=== PATIENT | female | born 1970 | race Caucasian/White ===

== ENCOUNTER → 2016-06-02 | Outpatient (CLI) | payer OTHER ==
[~2016-06-02] MED LIST: EPP3/2 IM; PRED20TA PO
== END | disposition home or self-care (01) ==
LOC: C.PAPS 09:16
PROVIDERS: ATTEND Obstetrics & Gynecology
DX: Z01.419 Encounter for gynecological examination (general) (routine) without abnormal findings (principal)

== ENCOUNTER → 2016-07-22 | Outpatient (CLI) | payer OTHER | END | disposition home or self-care (01) | LOC: C.PATH 17:48 | PROVIDERS: ATTEND Obstetrics & Gynecology | DX: N95.0 Postmenopausal bleeding (principal) ==

== ENCOUNTER 2016-08-24 10:21 | Emergency (ER) | payer OTHER ==
[~2016-08-24] VITALS: Ht 154.9 cm; Wt 57.7 kg
[2016-08-24 10:24] VITALS: TEMP 36.8; Ht 154.9 cm; Wt 57.7 kg
[2016-08-24] MEDS ORDERED: LORATADINE 10 MG TAB PO STA (10:44)
[2016-08-24] MEDS ORDERED: DEXAMETHASONE SOD INJ 10 MG/ML VIAL IM ONE (10:45)
[2016-08-24] MEDS ORDERED: PRED20TA PO (11:36)
[2016-08-24] MEDS ORDERED: EPP3/2 IM (11:36)
[2016-08-24 11:51] VITALS: BP 119/52; PULSE 86; O2SAT 99
--- NOTE | 2016-08-24 17:14 | EMERGENCY ROOM VISIT NOTE ---
History Report prepared by Mihir: Dana Mcgowan Under the Supervision of: Dr. Leo Wilson M.D. First contact with patient: 10:31 Chief Complaint: ALLERGIC REACTION Stated Complaint: ALLERGIC REACTION Nursing Triage Summary: Triage Note: Pt reports faical swelling since yesterday morning. pt reports "i have taken the max dose of benedryl." pt able to speak without complication in triage and is toleating secreatins. pt reports "i feel like my throat is swelling." History of Present Illness The patient is a 46 year old female who presents to the Emergency Room with complaints of persistent facial swelling starting 2 days ago. About a week and a half ago, the patient used a new ChapStick which caused her lip tingling and blisters on her lips. Most of the symptoms resolved after a few days but she continued to have dry lips and some redness. 2 days ago, her symptoms started with lip swelling and hot facial skin. Her symptoms continued to worsen yesterday with swelling radiating to her ears. She took Benadryl last night with some relief. This morning, she woke up with worsening facial swelling. Her throat felt tight this morning. She took Benadryl with some relief. The patient was referred to the Emergency Room by her PCP. She currently continues to complain of some facial swelling but reports that it has improved. She currently denies any facial or dental pain, shortness of breath, chest pain, rash, hives, diarrhea, or any other complaints. The patient started using Snuggle as a new detergent this weekend. She also re-did her hair color this weekend and the product may have had a change in ingredients. The patient denies any new medications or new foods. She denies any known allergies. She does not have any medical problems The patient's sister has a history of allergies. Source of History: patient Onset: 2 days ago Position: other (face) Quality: other (swelling) Timing: other (persistent) Modifying Factors (Relieving): other (Benadryl with some relief) Associated Symptoms: No SOB, No chest pain, No diarrhea, No rash Review of Systems See HPI for pertinent positives & negatives. A total of 10 systems reviewed and were otherwise negative. Past Medical & Surgical Medical Problems: (1) No Known Active Medical Problems Family History Patient reports no known family medical history. Social History Smoking Status: Never Smoker Marital Status: Occupation Status: employed Current/Historical Medications Scheduled Epinephrine (Epipen), 0.3 MG IM UD Prednisone (Prednisone), 3 TAB PO DAILY Allergies Coded Allergies: No Known Allergies (Unverified , 08/24/16) Physical Exam Vital Signs Date Time Temp Pulse Resp B/P Pulse Ox O2 Delivery O2 Flow Rate FiO2 08/24/16 11:51 86 20 119/52 99 08/24/16 11:26 87 20 99 08/24/16 10:59 110 08/24/16 10:25 99 Room Air 08/24/16 10:24 36.8 91 18 134/74 98 Room Air Physical Exam Constitutional: Vital signs reviewed. Eyes: Pupils are equal round reactive to light. Conjunctiva are noninjected. ENT: Pharynx is clear without erythema or exudate. Mucous membranes are moist. Neck supple without meningeal signs. Mild lip swelling, no swelling to the tongue or uvula. Respiratory: Clear to auscultation bilaterally. Breath sounds are equal bilaterally. No wheezing or stridor. Cardiovascular: Regular rate and rhythm. No rubs or gallops. GI: Soft, nondistended and nontender. Bowel sounds are present. Musculoskeletal: No peripheral edema. No lower extremity tenderness. Integumentary: No cyanosis. No hives. No facial cellulitis. Neurological: The patient is awake and alert. No focal deficits. Psychiatric: Normal affect. Medical Decision & Procedures Medications Administered Medications (Trade) Dose Ordered Sig/Michael Route Start Time Stop Time Status Last Admin Dose Admin Dexamethasone Sodium Phosphate (Decadron Inj) 10 mg NOW ONCE IM 08/24/16 10:45 08/24/16 10:46 DC 08/24/16 10:55 10 MG Loratadine (Claritin Tab) 10 mg NOW STAT PO 08/24/16 10:44 08/24/16 10:45 DC 08/24/16 10:55 10 MG ED Course 1031: The patient was evaluated in room A11B. A complete history and physical exam was performed. 1044: Claritin Tab 10 mg PO 1045: Decadron Inj 10 mg IM 1134: She feels about the same but feels ready to go home. I discussed indications and use of EpiPen with her. She verbalized agreement of the treatment plan. She will follow up with her PCP. The patient was discharged home. Medical Decision This is a 46-year-old female who presents with facial swelling. Differential diagnosis includes allergic reaction, angioedema, complement deficiency, dermatitis, cellulitis. I did perform a limited focused review of portions of the patient's old chart on the electronic medical record. The patient has had no recent pertinent visits to this hospital. I did evaluate the patient as noted above. The patient is well-appearing on examination. She has no swelling to her tongue or uvula. She has no stridor or wheezing on exam. She has no difficulty breathing. She does not appear to have any signs of cellulitis to her face. At this time I did treat her with Decadron 10 mg IM. She was also given Claritin as she is driving. I did reassess her. I did discuss need for follow up with an coiled tubing operator for further delineation of the cause of the symptom including possible blood work for complement deficiency. She was given a prescription for prednisone which she will start tomorrow. She was also given a prescription for an EpiPen and given instructions regarding its indications for use and had he use it. She was instructed to teach her how to use it as well. She was also advised to continue antihistamines as needed. She was discharged in good condition and given return instructions as outlined below. Impression Primary Impression: Angioedema Scribe Attestation The scribe's documentation has been prepared under my direct and personally reviewed by me in its entirety. I confirm that the note above accurately reflects all work, treatment, procedures, and medical decision making performed by me. Departure Information Dispostion Home / Self-Care Prescriptions Epinephrine (EPIPEN) 0.3 Mg/0.3 Ml Inj 0.3 MG IM UD, #1 BOX Prov: Leo Wilson M.D. 08/24/16 Prednisone (Prednisone) 20 Mg Tab 3 TAB PO DAILY, #12 TAB FOR 4 DAYS Prov: Leo Wilson M.D. 08/24/16 Referrals No Doctor, Assigned (PCP) Forms HOME CARE DOCUMENTATION FORM, IMPORTANT VISIT INFORMATION Patient Instructions ED Angioedema, My [facility] Additional Instructions You have been examined and treated today on an emergency basis only. This is not a substitute for, or an effort to provide, complete comprehensive medical care. It is impossible to recognize and treat all injuries or illnesses in a single emergency department visit. It is therefore important that you follow up closely with your physician and coiled tubing operator. Call as soon as possible for an appointment. Return for worsening symptoms or if you develop difficulty breathing, fever, facial pain, swelling to your tongue or any other concerning symptoms. Problem Qualifiers Primary Impression: Angioedema Encounter type: initial encounter Qualified Codes: T78.3XXA - Angioneurotic edema, initial encounter
== END 2016-08-24 11:51 | disposition home or self-care (01) ==
LOC: C.EDB 10:23 → C.EDA 11:51
DX: T78.3XXA Angioneurotic edema, initial encounter (principal); X58.XXXA Exposure to other specified factors, initial encounter

== ENCOUNTER → 2017-08-28 | Outpatient (CLI) | payer OTHER ==
[~2017-08-28] MED LIST changes: -PRED20TA PO
[2017-08-28 15:41] LABS: HEMATOCRIT 40.5 % (37-47); HEMOGLOBIN 13.7 g/dL (12.0-16.0); MEAN CELL VOLUME 98.1 fL (80-100); MEAN CORPUSCULAR HEMOGLOBIN 33.2 pg (25-34); MEAN CORPUSCULAR HGB CONC 33.8 g/dl (32-36); MEAN PLATELET VOLUME 9.5 fL (7.4-10.4); PLATELET COUNT 244 K/uL (130-400); RED CELL DISTRIBUTION WIDTH CV 13.9 % (11.5-14.5); RED CELL DISTRIBUTION WIDTH SD 49.6 fL (36.4-46.3); WHITE BLOOD COUNT 6.77 K/uL (4.8-10.8)
[2017-08-28 16:09] LABS: FOLLICLE STIMULAT HORMONE 55.91 IU/L
== END | disposition home or self-care (01) ==
LOC: C.LAB1850 14:09
PROVIDERS: ATTEND Obstetrics & Gynecology
DX: N95.0 Postmenopausal bleeding (principal)

== ENCOUNTER → 2017-08-28 | Outpatient (CLI) | payer OTHER ==
[~2017-08-28] MED LIST changes: +MULT-923 PO
== END | disposition home or self-care (01) ==
LOC: C.PAPS 09:26
PROVIDERS: ATTEND Obstetrics & Gynecology
DX: N95.0 Postmenopausal bleeding (principal); R87.618 Other abnormal cytological findings on specimens from cervix uteri